=== PATIENT | male | born 1995 | race Caucasian/White ===

== ENCOUNTER 2018-01-15 18:12 | Emergency (ER) | payer BC ==
[~2018-01-15] VITALS: Ht 177.8 cm; Wt 159.0 kg
[2018-01-15 18:22] VITALS: BP 174/91
[2018-01-15] MEDS ORDERED: FLEXERIL5 M1 PO (19:53)
[2018-01-15] MEDS ORDERED: VOLTAREN - GENE75 MG PO (19:53)
== END 2018-01-15 20:16 | disposition home or self-care (01) | DRG 563 ==
LOC: ED 18:12
DX: S39.012A Strain of muscle, fascia and tendon of lower back, initial encounter (principal); X50.0XXA Overexertion from strenuous movement or load, initial encounter; Y93.89 Activity, other specified; Y92.007 Garden or yard of unspecified non-institutional (private) residence as the place of occurrence of the external cause